=== PATIENT | male | born 1990 | race African-American/Black ===

== ENCOUNTER 2016-09-30 18:36 | Emergency (ER) | payer SELFPAY ==
--- NOTE | ~2016-09-30 | CT71 ---
[facility]. [facility] A Service of [facility] RADIOLOGY TEXT RESULTS PATIENT: SOLE CHANEY LOCATION: SED : 89 UNIT #: [id number] AGE: [address]: Tammy Paredes APRN SEX: M ORDER DR: [id number] [address] [address] [id number] E MR#: [id number] Acc #: [id number] NAME: SOLE CHANEY : 1990 SEX: M STUDY DATE/TIME: 09/30/2016 19:44 UNIT: SED ROOM: STUDY DESCRIPTION: CT Head Wo Contrast Attending Physician: Tammy Paredes A.P.R.N. Ordering Physician: Tammy Paredes A.P.R.N. [facility] REPORT This report is preliminary unless electronic signature is present. EXAM CT brain without contrast. HISTORY Headache for 2 weeks. Nausea and vomiting. FINDINGS Axial noncontrast images were obtained from the skull base to the vertex. This CT exam was performed with one or more of the following radiation dose reduction techniques: automatic exposure control, adjustment of mA and/or kV according to patient size, and iterative reconstruction. Ventricular size and configuration are normal. There is no evidence of acute infarct or hemorrhage. There are no extraaxial fluid collections. No mass lesion or mass effect is seen. There are no skull fractures. IMPRESSION Normal noncontrast head CT. Dictated by... Jake Zambrano M.D. THIS IS AN ELECTRONICALLY VERIFIED REPORT Jake Zambrano M.D. at 10/01/2016 2:46 PM DFL/samson TD: 10/01/2016 10:02 JOB #: [id number] MEDICAL IMAGING REPORT Page 1 of 1
[2016-09-30] MEDS ORDERED: NO MEDICATIONS (18:40)
[2016-09-30 19:28] LABS: BASOPHIL# 0.1 X10e3 (0-0.3); EOSINOPHIL% 0.6 % (0.0-7.0); HEMATOCRIT 44.6 % (38.0-50.0); HEMOGLOBIN 15.1 gm/dL (13.0-16.0); LYMPHOCYTE# 1.5 X10e3 (1.0-3.5); LYMPHOCYTE% 26.6 % (17.0-45.0); MEAN CELL VOLUME 89.8 FL (83-96); MEAN CORPUSCULAR HEMOGLOBIN 30.5 PG (28-34); MEAN PLATELET VOLUME 9.3 FL (6.5-11.5); MONOCYTE# 0.4 X10e3 (0-1.0); MONOCYTE% 6.5 % (3.0-12.0); NEUTROPHIL# 3.8 X10e3 (1.5-7.1); NEUTROPHIL% 65.3 % (40-75); PLATELET COUNT 188 X10e3 (140-420); RED BLOOD COUNT 4.96 X10e (3.90-5.60); RED CELL DISTRIBUTION WIDTH 13.3 % (11.0-15.5); WHITE BLOOD COUNT 5.8 X10e3 (4.0-10.5)
[2016-09-30 19:29] LABS: DIFF IND NO
[2016-09-30 19:44] LABS: ALBUMIN SERUM 5.2 g/dL (3.5-5.0); BUN/CREATININE RATIO 12.72; CALCIUM SERUM 9.8 mg/dL (8.4-10.2); CREATININE SERUM 1.1 mg/dL (0.6-1.4); GLOM FILT RATE Estimated 106.8 mL/min (>60); POTASSIUM 3.6 mmol/L (3.5-5.1); PROTEIN TOTAL SERUM 8.3 g/dL (6.0-8.3)
== END 2016-09-30 21:19 | disposition home or self-care (01) ==
LOC: SED 18:36
PROVIDERS: Nurse Practitioner Family
DX: R51 Headache (principal); F17.200 Nicotine dependence, unspecified, uncomplicated
CPT/HCPCS: 36415; 70450; 80053; 85025; 96361; 96374; 96375; 99284; J1200; J1885; J2405